=== PATIENT | female | born 1980 | race Caucasian/White ===

== ENCOUNTER → 2016-12-23 | Outpatient (CLI) | payer OTHER | LOC: MAMO 12-22 11:30 → US 12-24 13:00 → MAMO 12-28 13:40 | DX: N64.4 Mastodynia (principal) | CPT/HCPCS: 76641-LT; G0204 ==

== ENCOUNTER 2021-04-01 13:33 | Emergency (ER) | payer OTHER ==
[~2021-04-01 13:33] MED LIST: CEFUROXIME500 MG PO; NORFLEX 100 MG100 MG PO; PHENERGAN 25 MG25 M1 PO; PYRIDIUM200 MG PO; Voltaren Gel 1 % TOP; ZOFRAN ODT 4 MG4 MG PO; ZOFRAN4 MG PO
[2021-04-01] MEDS ORDERED: COMPAZINE10 MG PO (16:00)
[2021-04-01] MEDS ORDERED: IMITREX50 MG PO (16:00)
== END 2021-04-01 16:39 | disposition home or self-care (01) ==
LOC: ER1 13:33
DX: G43.909 Migraine, unspecified, not intractable, without status migrainosus (principal); Z90.710 Acquired absence of both cervix and uterus
CPT/HCPCS: 99283; J1200; J1885; J2060; J2765

== ENCOUNTER → 2021-09-01 | Outpatient (CLI) | payer OTHER ==
[~2021-09-01] MED LIST changes: +COMPAZINE10 MG PO; +IMITREX50 MG PO
== END ==
LOC: KOH-I 14:46
DX: M25.552 Pain in left hip (principal); M25.551 Pain in right hip
CPT/HCPCS: 73522

== ENCOUNTER → 2021-10-19 | Outpatient (CLI) | payer OTHER | LOC: KOH-I 09:30 | DX: M48.02 Spinal stenosis, cervical region (principal); M50.31 Other cervical disc degeneration, high cervical region | CPT/HCPCS: 72141 ==

== ENCOUNTER 2021-11-11 10:27 | Emergency (ER) | payer OTHER ==
[2021-11-11 12:43] LABS: HEMOGLOBIN 14.3 gm/dl (12.3-15.3); RED BLOOD COUNT 4.63 M/UL (4.00-5.10)
[2021-11-11 13:45] LABS: BUN/CREATININE RATIO 25 (0-10)
[2021-11-11] MEDS ORDERED: ONDANSETRON ODT4 MG PO (14:51)
== END 2021-11-11 15:09 | disposition home or self-care (01) ==
LOC: ER1 10:27
DX: R10.10 Upper abdominal pain, unspecified (principal); Z20.822 Contact with and (suspected) exposure to COVID-19; G43.909 Migraine, unspecified, not intractable, without status migrainosus; Z90.710 Acquired absence of both cervix and uterus; Z90.49 Acquired absence of other specified parts of digestive tract
CPT/HCPCS: 0240U; 71045; 80053; 81001; 82150; 82550; 82553; 83605; 83690; 84484; 85025; 93005; 96374; 96375; 99284; J2405; J2550; Q9967

== ENCOUNTER → 2021-12-08 | Outpatient (CLI) | payer OTHER ==
[~2021-12-08] MED LIST changes: +ONDANSETRON ODT4 MG PO
== END ==
LOC: EMI 15:17
DX: G43.009 Migraine without aura, not intractable, without status migrainosus (principal); G44.89 Other headache syndrome; R90.89 Other abnormal findings on diagnostic imaging of central nervous system
CPT/HCPCS: 70551

== ENCOUNTER 2021-12-13 11:37 | Emergency (ER) | payer OTHER ==
[2021-12-13 13:45] LABS: HEMOGLOBIN 14.4 gm/dl (12.3-15.3); RED BLOOD COUNT 4.7 M/UL (4.00-5.10); WHITE BLOOD COUNT 6.2 K/UL (4.5-11.0)
[2021-12-13 14:20] LABS: BUN/CREATININE RATIO 17 (0-10)
== END 2021-12-13 16:45 | disposition home or self-care (01) ==
LOC: ER1 11:37
PROVIDERS: Physician Assistant
DX: M25.551 Pain in right hip (principal); G89.29 Other chronic pain; R10.9 Unspecified abdominal pain
CPT/HCPCS: 73502; 80053; 84703; 85025; 85652; 86140; 96374; 99284; J1885; Q9967

== ENCOUNTER → 2022-03-03 | Outpatient (CLI) | payer OTHER | LOC: RAD 07:35 | DX: M25.551 Pain in right hip (principal) | CPT/HCPCS: 73722; A9577; Q9967 ==

== ENCOUNTER → 2022-04-06 | Outpatient (CLI) | payer OTHER | LOC: EMI 13:27 | DX: M79.651 Pain in right thigh (principal); M62.551 Muscle wasting and atrophy, not elsewhere classified, right thigh | CPT/HCPCS: 73718 ==

== ENCOUNTER → 2022-04-12 | Outpatient (CLI) | payer OTHER ==
[2022-04-12 11:00] LABS: HEMOGLOBIN 13.9 gm/dl (12.3-15.3); RED BLOOD COUNT 4.52 M/UL (4.00-5.10); WHITE BLOOD COUNT 6.7 K/UL (4.5-11.0)
[2022-04-12 13:45] LABS: BUN/CREATININE RATIO 21 (0-10)
[2022-04-13 08:19] LABS: VITAMIN D, 25-HYDROXY 26.1 ng/mL (30.0-100.0)
[2022-04-13 13:12] LABS: RNP ANTIBODIES <0.2 AI (0.0-0.9); SMITH ANTIBODIES <0.2 AI (0.0-0.9)
== END ==
LOC: LAB 10:02
PROVIDERS: Nurse Practitioner Family
DX: R53.83 Other fatigue (principal); R79.89 Other specified abnormal findings of blood chemistry; E53.8 Deficiency of other specified B group vitamins; M25.50 Pain in unspecified joint
CPT/HCPCS: 36415; 80053; 80061; 82607; 82728; 84439; 84443; 85025; 86038